=== PATIENT | female | born 1970 | race Caucasian/White ===

== ENCOUNTER 2020-01-23 11:28 | Emergency (ER) | payer BC, SELFPAY ==
[2020-01-23 11:34] VITALS: BP 139/80; PULSE 78; RESP 16; TEMP 36.6; O2SAT 98
--- NOTE | 2020-01-23 12:18 | ED.SKABFB ---
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 Patient states she has about 1/2-week history of pink, papular, discrete/well localized skin eruption on the palms and extensor aspects of her hands primarily. She notes a preceding 4-day history of definite sore throat, associated with fever to 101 which has since improved. She had a recent PCR Covid test that was negative ,; no CP, loss of taste/smell, travel, new partner. No fever, sore throat, eye/mucous membrane involvement, noncompliance with monthly methotrexate [recent increased to ~15 mg]; skin history is remarkable that she has a follow-up with dermatology for basal cell tomorrow and occasional acneiform eruptions on her nasal bridge. Discussed possible causes [infectious: Viral(HFM), bacterial, acquired/drug-related, etc.] and will treat broadly;Patient advised to keep photo log of area and see dermatology tomorrow; strep culture will be sent today. Related Data Home Medications Medication Instructions Recorded Confirmed cranberry 400 mg PO DAILY 03/17/19 10/30/19 folic acid 1 mg PO DAILY 03/17/19 10/30/19 cholecalciferol (vitamin D3) 25 mcg PO DAILY 03/20/19 10/30/19 [Vitamin D3] methotrexate sodium 2.5 mg tablet 17.5 mg PO WEEKLY tablet 10/30/19 10/30/19 multivitamin 1 tablet PO DAILY 10/30/19 10/30/19 Allergies Allergy/AdvReac Type Severity Reaction Status Date / Time Iodine and Iodide Containing Allergy Severe Swelling/RA Verified 10/30/19 10:37 Produc SH shellfish derived Allergy Severe RASH/SWELLI Verified 10/30/19 10:37 NG Review of Systems Review of Systems: Narrative: General/Constitutional: No weight loss, REPORTS prior fever Eyes: N0: Redness,discharge Ears/Nose/Throat: No: Epistaxis,ear discharge Respiratory: Denies: Hemoptysis Gastrointestinal: No Vomiting, Bleeding-rectal Skin: No Lumps, REPORTS eruption Neurologic: No Focal Weakness,Sz Hematologic: Denies: Petechiae/Purpura Psychiatric: No: Suicida ideationl All Other Systems: Reviewed and Negative [facility] Past Medical History Medical History (Updated 01/23/20 @ 12:06 by Diony Beverly MD) Basal cell carcinoma (~2007) Carpal tunnel syndrome Chronic rheumatic arthritis Chronic right shoulder pain Osteopenia Tendonitis Surgical History Surgical History (Updated 10/30/19 @ 11:21 by Otilia Tracy MD) History of cystoscopy History of hysterectomy 03/2019 History of tubal ligation (~2011) Family History Family History Grandparent Family history of malignant neoplasm of ovary, Onset Age: 72 Father Heart disease Pacemaker Social History Social History Smoking status: Never smoker Second hand tobacco smoke exposure: No Alcohol intake: current Substance use: never Substance use type: does not use Gender identity (if verbalized by the patient): Female Comments At time of signature, agree with nursing past medical, surgical, social and family history. There is no relevant family history pertinent to the presenting complaint Exam Narrative: Exam Narrative: General Appearance: Well-nourished, Normocephalic, Conjunctiva clear Ear: External ear normal Nose: Normal nose, Nare clear Mouth/Throat: Normal appearing no enanthem seen Neck Exam: Supple Respiratory: Airway patent, No respiratory distress Musculoskeletal: Moves all extremities, Non tender Skin: Warm, Dry smaller discrete papular skin eruption of bilateral hands Neurological: A&O x3, Normal affect Course Vital Signs Vital signs: Vital Signs Temperature 97.8 F 01/23/20 11:34 Pulse Rate 78 01/23/20 11:34 Resp
== END 2020-01-23 12:12 | disposition home or self-care (01) ==
PROVIDERS: Emergency Provider Emergency Medicine; PCP Family Medicine
DX: L30.9 Dermatitis, unspecified (principal); Z87.09 Personal history of other diseases of the respiratory system; M06.9 Rheumatoid arthritis, unspecified; M85.80 Other specified disorders of bone density and structure, unspecified site; Z85.828 Personal history of other malignant neoplasm of skin
CPT/HCPCS: 87081; 87880; 99213; G0463

== ENCOUNTER 2020-07-01 09:38 | Outpatient (CLI) | payer BC, SELFPAY ==
--- NOTE | ~2020-07-01 | MM_ITS ---
EXAMINATION: MM screening [facility] BI w corbin HISTORY: Screening mammogram TECHNIQUE: Craniocaudal and mediolateral oblique 3-D tomosynthesis images were obtained and synthetic 2-D images were generated. CAD analysis was submitted and interpreted. COMPARISON: 04/06/2019, 09/12/2018, 08/18/2017 BREAST PARENCHYMAL COMPOSITION: There are scattered areas of fibroglandular density. FINDINGS: There is no evidence of suspicious mass, calcification, or architectural distortion to sugg est malignancy in either breast. There has been no suspicious interval change. IMPRESSION: 1. No mammographic evidence of malignancy. 2. Recommend routine screening mammography in one year. BI-RADS Category 1: Negative Reviewed, dictated and finalized at location A.
== END 2020-07-01 09:39 | disposition home or self-care (01) ==
LOC: ANHIMG 09:44
PROVIDERS: PCP Family Medicine; Visit Provider Obstetrics & Gynecology
DX: Z12.31 Encounter for screening mammogram for malignant neoplasm of breast (principal)
CPT/HCPCS: 77063; 77067

== ENCOUNTER → 2021-05-23 13:04 | Outpatient (CLI) | payer OTHER, SELFPAY ==
--- NOTE | ~2021-05-23 | XR_ITS ---
XR foot LT standing 2V 05/23/2021 13:33 Indication: Left foot pain. Rheumatoid arthritis. Procedure: 2 views of the left foot Comparison: No prior studies for comparison. Findings: There is osteoarthritis of the second MTP joint. No erosive changes. Lisfranc joint intact. No acute fracture or traumatic malalignment. There is a small degenerative calcaneal enthesophyte at the plantar surface. Impression: 1: No acute bone or joint abnormality. Reviewed, dictated and finalized at location A. ED HAM [employer]ACER Impression: 1: No acute bone or joint abnormality.
--- NOTE | ~2021-05-23 | XR_ITS ---
XR hand BI arthritis min 3V 05/23/2021 13:33 Indication: Rheumatoid arthritis. Procedure: 4 views of each hand Comparison: No prior studies for comparison. Findings: No significant joint space narrowing. No erosive changes. There is anatomic alignment. No f ocal soft tissue abnormality. No foreign bodies. Impression: 1: No significant bone or joint abnormality. Reviewed, dictated and finalized at location A. [employer] Impression: 1: No significant bone or joint abnormality.
--- NOTE | ~2021-05-23 | XR_ITS ---
XR foot RT standing 2V 05/23/2021 13:33 Indication: Right foot pain. Rheumatoid arthritis. Procedure: 2 views right foot Comparison: No prior studies for comparison. Findings: No fracture, subluxation or dislocation. No significant joint space narrowing. Lisfranc clive nt intact. No erosive changes. Impression: 1: No significant bone or joint abnormality. Reviewed, dictated and finalized at location A. [employer] Impression: 1: No significant bone or joint abnormality.
== END ==
PROVIDERS: PCP Physician Assistant; Visit Provider Internal Medicine
DX: M05.79 Rheumatoid arthritis with rheumatoid factor of multiple sites without organ or systems involvement (principal)
CPT/HCPCS: 73130; 73620

== ENCOUNTER 2021-05-31 11:17 | Emergency (ER) | payer OTHER, SELFPAY ==
[2021-05-31 11:28] VITALS: BP 109/63; PULSE 65; RESP 16; TEMP 36.3; O2SAT 100
--- NOTE | 2021-05-31 11:41 | ED.EYEPROB ---
HPI - Eye Problem General Chief complaint: Eye Problems Stated complaint: EYE REDNESS Time Seen by Provider: 05/31/21 11:40 Source: patient, RN notes reviewed and old records reviewed Mode of arrival: ambulatory Limitations: no limitations History of Present Illness HPI Narrative: [facility] of left eye crustiness. First noticed discharge this morning. Slight itch mild pressure. Swollen upper and lower left eyelids. Has had conjunctivitis previously. I kind of know what it feels like . Reports mild blurry vision in left eye this morning before her eye cleared. Denies continued vision changes or floaters in vision. Denies trauma to the eye. Denies getting anything in eye. Denies sinus congestion or drainage or sore throat. Denies fever muscle aches or chills. chief complaint: eye redness Eye Symptoms: redness, itching and discharge Related Data Home Medications Medication Instructions Recorded Confirmed cholecalciferol (vitamin D3) 25 mcg PO DAILY 03/20/19 10/29/20 [Vitamin D3] multivitamin 1 tablet PO DAILY 10/30/19 10/29/20 Allergies Allergy/AdvReac Type Severity Reaction Status Date / Time Iodine and Iodide Containing Allergy Severe Swelling/RA Verified 05/27/21 11:10 Produc SH shellfish derived Allergy Severe RASH/SWELLI Verified 05/27/21 11:10 NG Review of Systems Review of Systems: CONSTITUTIONAL: Denies malaise, chills, sweats, or fever. EYES: Denies floaters. Reports mild blurry vision this morning but cleared within 10 minutes. Reports redness, irritation, watery discharge. ENT: Denies rhinorrhea, congestion, sinus pain, otalgia and sore throat. CARDIOVASCULAR: Denies chest pain, palpitations, or edema. RESPIRATORY: Denies cough, shortness of breath.. Denies dyspnea. GASTROINTESTINAL: Denies abdominal pain, nausea, vomiting, diarrhea SKIN: Denies rash or itching. MUSCULOSKELETAL: Denies myalgia. NEUROLOGIC: Denies headache. [facility] Past Medical History Medical History Basal cell carcinoma (~2007) Carpal tunnel syndrome Chronic rheumatic arthritis Chronic right shoulder pain Osteopenia Rheumatoid arthritis, seropositive, multiple sites Tendonitis Surgical History Surgical History History of cystoscopy History of hysterectomy 03/2019 History of tubal ligation (~2011) Family History Family History Grandparent Family history of malignant neoplasm of ovary, Onset Age: 72 Father Heart disease Pacemaker Social History Social History Smoking status: Never smoker Second hand tobacco smoke exposure: No Alcohol intake: current Alcohol use details: consumes 1 glass of wine rarely Substance use: never Substance use type: does not use Gender identity (if verbalized by the patient): Female Comments At time of signature, agree with nursing past medical, surgical, social and family history. There is no relevant family history pertinent to the presenting complaint Exam Narrative: GENERAL: Well-appearing, well-nourished, female and in no acute distress. Pleasant, cooperative. Casually dressed. HEAD: Normocephalic EYES: PERRLA, EOMI, left conjunctivae mildly injected. Scant clear discharge noted upper and lower left eyelids mildly edematous. ENT: Nares clear. Mucous membranes moist. NECK: Supple. No lymphadenopathy or tenderness with palpation. CHEST: No respiratory distress, speaks in full sentences. Lung sounds clear anterior and posterior. HEART: Regular rate and rhythm. No murmur heard. SKIN: [place], warm, dry, no rash. NEURO: Alert and oriented x3. PSYCH: Euthymic mood and affect Course Course Emergency Course: Patient is aware of diagnosis, understands and agrees to treatment plan. Christoph villarreal
== END 2021-05-31 12:02 | disposition home or self-care (01) ==
PROVIDERS: Emergency Provider Nurse Practitioner Family; PCP Physician Assistant
DX: H10.9 Unspecified conjunctivitis (principal); Z85.828 Personal history of other malignant neoplasm of skin; M85.80 Other specified disorders of bone density and structure, unspecified site; M05.9 Rheumatoid arthritis with rheumatoid factor, unspecified
CPT/HCPCS: 99213; G0463

== ENCOUNTER → 2021-06-18 12:43 | Outpatient (CLI) | payer OTHER, SELFPAY ==
--- NOTE | ~2021-06-18 | US_ITS ---
US abdomen limited INDICATION: Elevated liver enzymes. History of rheumatoid arthritis. PROCEDURE: Realtime right upper abdominal ultrasound. COMPARISON: No prior studies for comparison. FINDINGS: The pancreas is normal without focal mass or pancreatic ductal dilation. Liver echotexture is normal without focal mass or intrahepatic biliary dilatation. There is normal directional flow i n the portal vein. The gallbladder is normal without stones, gallbladder wall thickening or pericholecystic fluid. Comm on bile duct measures 3 mm. No sonographic Rossi's sign. IMPRESSION: 1: Normal limited abdominal ultrasound. Reviewed, dictated and finalized at location B.
== END ==
PROVIDERS: PCP Family Medicine; Visit Provider Physician Assistant
DX: R79.89 Other specified abnormal findings of blood chemistry (principal)
CPT/HCPCS: 76705

== ENCOUNTER 2021-07-04 07:23 | Outpatient (CLI) | payer OTHER, SELFPAY ==
--- NOTE | ~2021-07-04 | MM_ITS ---
EXAMINATION: MM screening [facility] BI w corbin HISTORY: Screening mammogram TECHNIQUE: Craniocaudal and mediolateral oblique 3-D tomosynthesis images were obtained and synthetic 2-D images were generated. CAD analysis was submitted and interpreted. COMPARISON: 07/01/2020, 04/06/2019, 09/26/2018, 09/12/2018 BREAST PARENCHYMAL COMPOSITION: There are scattered areas of fibroglandular density. FINDINGS: There is no suspicious mass, calcification, or architectural distortion to suggest malignan cy in either breast. There has been no suspicious interval change. IMPRESSION: 1. No mammographic evidence of malignancy. 2. Recommend routine screening mammography in one year. BI-RADS Category 1: Negative Reviewed, dictated and finalized at location A.
== END 2021-07-04 07:24 | disposition home or self-care (01) ==
LOC: ANHIMG 07:25
PROVIDERS: PCP Family Medicine; Visit Provider Obstetrics & Gynecology
DX: Z12.31 Encounter for screening mammogram for malignant neoplasm of breast (principal)
CPT/HCPCS: 77063; 77067

== ENCOUNTER 2021-09-17 09:45 | Outpatient (CLI) | payer OTHER, SELFPAY ==
--- NOTE | ~2021-09-17 | DEXA_ITS ---
Bone Density Report Name: LUIS A ANTON Age: 51 Sex: Female Ethnicity: White Date of : 1970 Indication: screening for osteoporosis; height loss; asthma or emphysema; hysterectomy; Referring Provider: DAE SAM Study: Bone densitometry was performed. Exam Date: September 17, 2021 Accession number: [id number] Bone Density: Region BMD T-score Z-score Classification AP Spine(L1, L2, L3) 1.009 -0.1 0.8 Normal Femoral Neck (Left) 0.645 -1.8 -0.9 Osteopenia Total Hip (Left) 0.821 -1.0 -0.4 Normal Femoral Neck (Right) 0.667 -1.6 -0.7 Osteopenia Total Hip (Right) 0.849 -0.8 -0.2 Normal Total Hip Mean 0.835 -0.9 -0.3 Normal World Health Organization criteria for BMD impression classify patients as: Normal (T-score at or above -1.0), Osteopenia (T-score between -1.0 and -2.5), or Osteoporosis (T-score at or below -2.5). 10-year Fracture Risk: FRAX not reported because: Premenopausal woman Clinical Information Provided by Patient: Has used the following medications: Calcium Has the following medical conditions: Asthma or Emphysema, Hysterectomy Patient maximum height was 64 Drinks caffeinated beverages Onset of menses at age 9 Premenopausal Number of children 1 Impression: The patient's bone mass is within expected range for age, gender and ethnicity. Discussion: BONE DENSITY IS WITHIN EXPECTED LIMITS FOR AGE, SEX AND RACE. Bone density is within expected limits for age, sex and race at all sites measured. The patient should follow a healthful lifestyle (good nutrition with adequate calcium and vitamin D, and appropriate weight-bearing exercise). Follow-Up: Consider repeating this study in 2 to 3 years to reassess this patient's status, or sooner if there is some new clinical indication. Reported by: MALINI on 09/17/2021 10:19:00 AM. Reviewed, dictated and finalized at location ADoni LARA
== END 2021-09-17 09:46 | disposition home or self-care (01) ==
PROVIDERS: PCP Family Medicine; Visit Provider Physician Assistant
DX: Z78.0 Asymptomatic menopausal state (principal); M85.89 Other specified disorders of bone density and structure, multiple sites
CPT/HCPCS: 77080

== ENCOUNTER 2022-02-17 16:46 | Emergency (ER) | payer OTHER, SELFPAY ==
[2022-02-17 16:53] VITALS: BP 137/67; PULSE 73; RESP 16; TEMP 36.6; O2SAT 100
--- NOTE | 2022-02-17 16:53 | ED.FEMALEGU ---
HPI - Female Genitourinary General Chief complaint: Urogenital-Female Stated complaint: UTI SYMPTOMS Time Seen by Provider: 02/17/22 16:50 Source: patient and RN notes reviewed History of Present Illness HPI Narrative: Patient is a 51-year-old female who presents to urgent care with complaints of a possible UTI. Patient denies any fevers, nausea, vomiting. States that she has had some lower abdominal pressure and the urgency for urination. Patient states she has had UTIs in the past but denies kidney stones. Patient states her last bowel movement was yesterday but she does have issues with constipation. Patient has not done anything for her symptoms [id number] with the exception of cranberry juice. No other acute complaints. No acute distress noted. Patient aware of plan of care. Some parts of this dictation were generated by voice recognition software and may contain typographical and/or grammatical inaccuracies. Related Data Home Medications Medication Instructions Recorded Confirmed cholecalciferol (vitamin D3) 25 25 mcg PO DAILY 03/20/19 06/03/21 mcg (1,000 unit) capsule (Vitamin D3) multivitamin (One-A-Day Essential 1 tablet PO DAILY 10/30/19 06/03/21 tablet) Allergies Allergy/AdvReac Type Severity Reaction Status Date / Time Iodine and Iodide Containing Allergy Severe Swelling/RA Verified 10/03/21 11:40 Produc SH shellfish derived Allergy Severe RASH/SWELLI Verified 10/03/21 11:40 NG Review of Systems Review of Systems: CONSTITUTIONAL: Denies fever, chills, or sweats. EYES: Denies visual changes, redness, or discharge. ENT: Denies rhinorrhea, congestion, sore throat, or otalgia. CARDIOVASCULAR: Denies chest pain, palpitations, or edema. RESPIRATORY: Denies cough or dyspnea. GASTROINTESTINAL: Denies abdominal pain, nausea, vomiting, or diarrhea. GENITOURINARY: Reports of urinary urgency and suprapubic pressure SKIN: Denies rash or itching. MUSCULOSKELETAL: Denies back pain, joint pain, or myalgia. NEUROLOGIC: Denies headache, numbness, or weakness. All other systems reviewed are negative, except as documented in HPI. [facility] Past Medical History Medical History Basal cell carcinoma (~2007) Carpal tunnel syndrome Chronic right shoulder pain Osteopenia Rheumatoid arthritis, seropositive, multiple sites Tendonitis Surgical History Surgical History History of cystoscopy History of hysterectomy 03/2019 History of tubal ligation (~2011) Family History Family History Grandparent Family history of malignant neoplasm of ovary, Onset Age: 72 Father Heart disease Pacemaker Social History Social History Smoking status: Never smoker Second hand tobacco smoke exposure: No Alcohol intake: current Drinks per week: 3 Substance use: never Substance use type: does not use Gender identity (if verbalized by the patient): Female Comments At the time of my signature, I reviewed and agree with the nursing past medical, surgical, social, and family history. There is no relevant family history pertinent to the patient complaint. Exam Narrative: GENERAL: This is a well-nourished, well-developed patient, in no apparent distress. HEAD: normocephalic, atraumatic. EYES: PERRL. Sclera clear/white. Vision is grossly intact. EARS: External ears normal NOSE: External nose normal with no obvious nasal discharge, nares without redness, no rhinorrhea. THROAT: Mucous membranes moist NECK: Neck supple CARDIOVASCULAR: Regular rate and rhythm without murmurs, gallops, or rubs. RESPIRATORY: Clear to auscultation. Breath sounds equal bilaterally. No wheezes, rales, or rhonchi. GASTROINTESTINAL: Abdomen soft, non-tender, nondistended. Bowel sounds are active. SKIN: warm, intact w
== END 2022-02-17 17:21 | disposition home or self-care (01) ==
PROVIDERS: Emergency Provider Nurse Practitioner Family; PCP Family Medicine
DX: N30.90 Cystitis, unspecified without hematuria (principal); Z85.828 Personal history of other malignant neoplasm of skin
CPT/HCPCS: 81003; 87086; 99213; G0463

== ENCOUNTER 2022-07-22 15:58 | Outpatient (CLI) | payer OTHER, SELFPAY ==
--- NOTE | ~2022-07-22 | MM_ITS ---
EXAMINATION: MM screening [facility] BI w corbin HISTORY: Screening mammogram TECHNIQUE: Craniocaudal and mediolateral oblique 3-D tomosynthesis images were obtained and synthetic 2-D images were generated. CAD analysis was submitted and interpreted. COMPARISON: 07/04/2021, 07/01/2020, 04/06/2019, 09/12/2018 BREAST PARENCHYMAL COMPOSITION:There are scattered areas of fibroglandular density. FINDINGS: No suspicious mass, calcification, or architectural distortion are identified in either kevin ast to suggest malignancy. There has been no suspicious interval change. IMPRESSION: No mammographic evidence of malignancy. Recommend routine screening mammography in one year. BI-RADS Category 1: Negative Reviewed, dictated and finalized at location .
== END 2022-07-22 15:59 | disposition home or self-care (01) ==
PROVIDERS: PCP Family Medicine; Visit Provider Obstetrics & Gynecology
DX: Z12.31 Encounter for screening mammogram for malignant neoplasm of breast (principal)
CPT/HCPCS: 77063; 77067

== ENCOUNTER 2023-09-14 08:15 | Outpatient (CLI) | payer OTHER, SELFPAY ==
--- NOTE | ~2023-09-14 | MM_ITS ---
EXAMINATION: MM screening [facility] BI w corbin HISTORY: Screening TECHNIQUE: Craniocaudal and mediolateral oblique 3-D tomosynthesis images were obtained and synthetic 2-D images were generated. CAD analysis was submitted and interpreted. COMPARISON: Comparison to multiple prior studies sequentially, with oldest reviewed study dated 07/01. BREAST PARENCHYMAL COMPOSITION: There are scattered areas of fibroglandular density. FINDINGS: There is no evidence of suspicious mass, calcification, or architectural distortion to sugg est malignancy in either breast. There has been no suspicious interval change. IMPRESSION: 1. No mammographic evidence of malignancy. 2. Recommend routine screening mammography in one year. BI-RADS Category 1: Negative Reviewed, dictated and finalized at location B.
== END 2023-09-14 08:16 | disposition home or self-care (01) ==
PROVIDERS: PCP Family Medicine; Visit Provider Obstetrics & Gynecology
DX: Z12.31 Encounter for screening mammogram for malignant neoplasm of breast (principal)
CPT/HCPCS: 77063; 77067

== ENCOUNTER 2024-09-20 01:27 | Day surgery (SDC) | payer OTHER, SELFPAY ==
[2024-09-04 14:38] VITALS: BMI 23.3
--- OUTSIDE RECORDS SUMMARY | 2024-09-20 01:31 | XMS_ITS | Clinical Summary ---
Author Organization [facility] [employer] Address [address] [place] [place] [address] Care Team Providers Care Funeral Service Manager Name Role Phone Iwona Mclaughlin MD Primary Care Provider [phone] Source Comments [facility] [employer],non-owned Affiliates and Associated Physician Practices is amultiple site organization consisting of ambulatory clinics and hospital sitesin [place], [place], [place] and [place]. This disclosure is being madepursuant to the Care Everywhere program and may not contain all information available regarding this patient. Last updated 17.[facility] [employer] Allergies Active Allergy Reactions Criticality Noted Date Comments Shellfish Unknown 01/05/2022 Medications * Be aware that medications may not be up to date on this document. Alwaysverify current medications with the patient. cetirizine (ZyrTEC) 10 MG tablet Take 1 (one) tablet by mouth once daily Active Cranberry 200 MG Take 1 tablet by mouth once daily Active Multiple Vitamin (Multi-Vitamins ) TABS Take 1 (one) tablet by mouth once daily Active Cholecalciferol (D3-1000 PO) Active Probiotic Product (PROBIOTIC-10 PO) Active fluticasone propionate (Flonase) 50 MCG/ACT nasal spray 3 Active hydroxychloroqu ine (Plaquenil) 200 MG tabletIndicatio ns:Rheumatoid Arthritis Take 1 (one) tablet by mouth once daily Reasons: Rheumatoid Arthritis 90 tablet 3 4 11/22/19 25 Active methotrexate 2.5 MG tabletIndicatio ns:Rheumatoid Arthritis Take 4 (four) tablets by mouth every 7 days Reasons: Rheumatoid Arthritis 48 tablet 3 4 11/22/19 25 Active folic acid (Folvite) 1 MG tabletIndicatio ns:Rheumatoid arthritis involving multiple sites with positive rheumatoid factor (HCC) Take 1 (one) tablet by mouth once daily 90 tablet 3 4 11/22/19 25 Active nitrofurantoin monohyd macro crystals (Macrobid) 100 MG capsule TAKE 1 CAPSULE BY MOUTH TWICE DAILY FOR 5 DAYS 5 Active Active Problems No known active problems Encounters Date Type Department Care Team Description 07/28/2024 Orders Only [facility] - Rheumatology [address] [place] [phone] Inder Blanchard MD Rheumatoid arthritis involving multiple sites with positive rheumatoid factor (HCC); Therapeutic drug monitoring; Transaminitis; detention current use of immunosuppressive drug 07/17/2024 9:30 AM CDT Office Visit [facility] - Ophthalmology [address] [place] [phone] Leobardo Caal MD Long-term use of hydroxychloroquine (Primary Dx); Orbital mass 07/17/2024 9:10 AM CDT Clinical Support [facility] - Ophthalmology [address] [place] [phone] Leobardo Caal MD Long-term use of hydroxychloroquine (Primary Dx) 07/17/2024 9:05 AM CDT Clinical Support [facility] - Ophthalmology [address] [place] [phone] Leobardo Caal MD Long-term use of hydroxychloroquine (Primary Dx) 07/17/2024 Travel from Last 3 Months Immunizations Immunization Administration Dates Next Due INFLUENZA VACCINE, TRIV. (AF LURIA, FLUZONE TRIVALENT; 6MO+) (IIV3) 12/11/2014,01/08/2011,12/20/2008,2002 INFLUENZA VACCINE, QUADR. (A FLURIA, FLUZONE QUADRIVALENT; 6MO+) (IIV4) 02/15/2012,01/03/2010 INFLUENZA VACCINE, QUADR. (F LUZONE; FLULAVAL; FLUARIX; AFLURIA QUADRIVALENT; 6MO+), 0.5 ML (IIV4) 12/26/2019,01/03/2019,01/26/2018,2016,01/16/2016 TDAP (7yrs+) 10/30/2019 iNFLUENZA VACCINE, RECOM-REYES, QUADR. (FLUBLOCK QUADRIVALENT; 18Y+) (RIV4) 01/05/2022 Family History Medical History Relation Name Comments Cataract Mother Blindness Neg Hx Glaucoma Neg Hx Macular Degeneration Neg Hx Relation Name Status Comments Mother Social History Tobacco Use Types Packs/Day Years Used Date Smoking Tobacco: Never Smokeless Tobacco: Never Tobacco Cessation:Counseling Given: Not Answered Alcohol Use Standard Drinks/Week Comments Yes 0 (1 standard drink = 0.6 oz pur e alcohol) social PHQ-2 Answer Date Recorded Patient Health Questionnaire-2 Score 0 06/05/2024 Comments No Sex and Gender Information Value Date Recorded Sex Assigned at Not on file Legal Sex Female 6:46 PM [employer] Gender Identity Not on file Sexual Orientation Not on file Last Filed Vital Signs Vital Sign Reading Time Taken Comments Blood Pressure 107/71 06/05/2024 8:36 AM [employer] Pulse 74 06/05/2024 8:36 AM [employer]CR[employer]E [employer] Temperature 36.7 C (98 F) 06/05/2024 8:36 AM [employer]CR[employer]E [employer] Respiratory Rate - - Oxygen Saturation 97% 06/05/2024 8:36 AM [employer]CR[employer]E [employer] Inhaled Oxygen Concentration - - Weight 61.7 kg (136 lb) 06/05/2024 8:36 AM CONCRETE [employer] B[employer] Height 162.6 cm (5' 4) 06/05/2024 8:36 AM [employer]CR[employer]E [employer] Body Mass Index 23.34 06/05/2024 8:36 AM [employer]CRETE [employer] Plan of Treatment Upcoming Encounters Date Type Department Care Team (Late st Contact Info) Description 01/16/2025 10:45 AM CDT Office Visit [facility] - Ophthalmology [address] [place] [phone] Leobardo Caal MD [address] [facility] [place] [address] Health Maintenance Due Date Last Done Comments COLOGUARD (AGES 45-75) - COLON CA SCREENING 1968 COLON MONITORING 1968 COLONOSCOPY - COLON CA SCREENING 1968 CT COLONOGRAPHY - COLON CA SCREENING 1968 Colorectal Cancer Screening 1968 FIT - COLON CA SCREENING 1968 FLEX SIG - COLON CA SCREENING 1968 LIPID TESTING 1968 MAMMOGRAM 1968 HIV SCREENING 09/11/1983 HEPATITIS B VACCINE (1 of 3 - 19+ 3-dose series) 09/11/1987 PAP SMEAR 1989 PNEUMOCOCCAL VACCINE 50+ (1 of 1 - PCV) 2018 ZOSTER VACCINE (1 of 2) 2018 COVID-19 VACCINE (3 - season) 2023 05/25/2020, 04/28/2020 INFLUENZA VACCINE (Season Ended) 2024 01/05/2022, 04/07/2021, 12/26/2019, Additional history exists DTAP/TDAP/TD VACCINES (2 - Td or Tdap) 10/29/2029 10/30/2019 HEPATITIS C SCREENING Completed 01/16/2022 DEPRESSION SCREENING Completed 06/05/2024, 11/22/2023, 06/11/2022 HIB VACCINE Aged Out No longer eligi ble based on patient's age to complete this topic HPV VACCINE Aged Out No longer eligi ble based on patient's age to complete this topic MENINGOCOCCAL (Group B) VACCINE SHARED DECISION-MAKING Aged Out No longer eligible based on patient's age to complete this topic MENINGOCOCCAL GROUPS A/C/Y/W VACCINE Aged Out No longer eligible based on patient's age to complete this topic Procedures Procedure Name Priority Date/Time Associated Diagnosis Comments RETINAL ANALYSIS OCT Routine 07/17/2024 9:01 AM CDT Long-term use of hydroxychloroquine CISNEROS AUTO VISUAL FIELD EXTENDED Routine 07/17/2024 9:01 AM CDT Long-term use of hydroxychloroquine HEPATITIS C AB W/RFLX TO HCV RNA QN PCR 01/16/2022 1:01 PM CDT from Last 3 Months or Most Recently Relevant to Health Maintenance Results * RETINAL ANALYSIS OCT (07/17/2024 9:01 AM CDT) Anatomical Region Laterality Modality Head External-Camera Photography Narrative 07/17/2024 11:22 AM CDT Images from the original result were not included. OD: OS: Leobardo Caal MD OPHTHALMOLOGY SCHED ORD W PAC S Final Result * CISNEROS AUTO VISUAL FIELD EXTENDED (07/17/2024 9:01 AM CDT) Anatomical Region Laterality Modality Head External-Camera Photography Narrative 07/17/2024 11:22 AM CDT Images from the original result were not included. Leobardo Caal MD OPHTHALMOLOGY SCHED ORD W PAC S Final Result * HEPATITIS C AB W/RFLX TO HCV RNA QN PCR (01/16/2022 1:01 PM CDT) Hepatitis C Antibody NON-REACTI VE NON-REACT [facility] Signal to Cut-Off 0.02 <1.00 [facility] Comment: HCV antibody was non-reactive. There is no laboratory evidence of HCV infection. In most cases, no further action is required. However, if recent HCV exposure is suspected, a test for HCV RNA (test code 05345) is suggested. For additional information please refer to http://education.[employer]/faq/SSA92d5 (This link is being provided for informational/ educational purposes only.) REPORT COMMENT: COULDNT CLARIFY TB TEST, PT WANT TO DECLINE IT ALL TOGETHER FASTING:NO PATIENT REFUSED SOME TESTING; PATIENT ENCOURAGED Test Performed at: [facility] [address] [place] [address] AHMET CASAS DO,MPH 01/16/2022 1:01 PM CDT 01/16/2022 1:08 PM CDT Inder Blanchard MD LAB - CHEMISTRY ORDERABLES Final Result [facility] [id number] [place] [address] from Last 3 Months or Most Recently Relevant to Health Maintenance Insurance [id number] [place] [address] HEALTH CARE HEALTH CARE Care Teams Funeral Service Manager Relationship Specialty Start Date End Date Iwona Mclaughlin MD [address] [place] [address] PCP - General 09/27/21
--- OUTSIDE RECORDS SUMMARY | 2024-09-20 01:31 | XMS_ITS | Clinical Summary ---
Author Organization [facility] Address [address] [place] [address] Care Team Providers Care Solar Designer/Installer Name Role Phone Som Wilkins MD Unavailable [phone] Iwona Mclaughlin MD Primary Care Provider Braulio Nova MD Unavailable Luis Manuel Deleon MD Unavailable [phone] Allergies Active Allergy Reactions Criticality Noted Date Comments Shellfish Derived Edema Medium 01/05/2022 Medications naproxen (ALEVE) 220 mg tablet Take according to fgfq-swt-tkujzz r package directions 0 0 8 Active Additional Information Patient taking differently:220 mgoral Every 12 hours PRN, pain, Indications: Anti-inflammatory, Informant: Self, Reported on 03/08/2023 folic acid (FOLVITE) 1 mg tablet Take two by mouth one time per day 60 9 Active Additional Information Patient taking differently:1 mgoral Every morning, Indications: Folate Deficiency, Informant: Self, Reported on 03/08/2023 cranberry extract 200 mg capsuleIndicat ions:supplemen t Take 1 capsule by mouth every morning Active multivitamin tabletIndicati ons:Vitamin Deficiency Prevention Take 1 tablet by mouth every morning Active cetirizine (ZyrTEC) 10 mg tabletIndicati ons:Seasonal Allergic Rhinitis Take 1 tablet (10 mg total) by mouth every morning Active methotrexate 2.5 mg tabletIndicati ons:Rheumatoid Arthritis Take 8 tablets (20 mg total) by mouth every 7 days 96 tablet 1 1 Active Additional Information Patient taking differently:20 mg oral Every 7 days,Take 5 tablets once per week on Sundays, Indications: Rheumatoid Arthritis, Reported on 03/08/2023 L.acid/L.casei /B.bif/B.gasper/F OS (PROBIOTIC BLEND ORAL)Indicatio ns:bowel health Take 1 capsule by mouth every morning Active calcium carbonate-mana min D3 1,250 mg (500 mg elemental)-600 unit tabletIndicati ons:Hypocalcem ia Prevention,Pre vention of Vitamin D Deficiency Take 1 tablet by mouth every morning Active fluticasone propionate (FLONASE) 50 mcg/actuation nasal sprayIndicatio ns:Allergic Rhinitis Administer 1 spray into each nostril 2 (two) times a day as needed for allergies 3 Active hydroxychloroq uine (PLAQUENIL) 200 mg tabletIndicati ons:Rheumatoid Arthritis Take 1 tablet (200 mg total) by mouth every morning 3 Active cholecalcifero l, vitamin D3, (VITAMIN D3 ORAL)Indicatio ns:supplement Take 1 capsule by mouth every morning Active albuterol HFA (PROVENTIL HFA,VENTOLIN HFA,PROAIR HFA) 90 mcg/actuation inhalerIndicat ions:Bronchiti s Inhale 2 puffs every 6 (six) hours as needed for wheezing or shortness of breath 1 each 4 025 Discontinu ed(No longer taking - Do not display on AVS) benzonatate (TESSALON) 200 mg capsuleIndicat ions:Bronchiti s Take 1 capsule (200 mg total) by mouth 3 (three) times a day as needed for cough 30 capsule 4 025 Discontinu ed(No longer taking - Do not display on AVS) Active Problems Problem Noted Date Diagnosed Date 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 Orbital lesion 02/02/2023 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 Rheumatoid arthritis, seropositive, multiple sit es 03/12/2015 Overview (07/09/2016): Seropositive rheumatoid arthritis Resolved Problems Problem Noted Date Diagnosed Date Resolved Date Abdominal pain, acute, right upper quadrant 10/12/2016 08/31/2018 Assessment & Plan (10/12/2016 9:17 AM CDT): This may be her gall bladder She is encouraged to monitor it Encounters Date Type Department Care Team Description 09/07/2024 10:00 AM CDT Office Visit [facility] Ophthalmology [address] [place] [address] Health 6th [place] [address] Bryan Mederos MD Orbital mass (Primary Dx) 09/07/2024 7:37 AM CDT - 09/07/2024 11:59 PM CDT Hospital Encounter [facility] [address] [place] [address] Bryan Mederos MD Orbital mass Discharge Disposition: Discharge to home or self care 08/07/2024 9:15 AM CDT Procedure visit [facility] Dermatology [address] [place] [address] Health [address] [place] [address] Christopher Brizuela MD Basal cell carcinoma (BCC) of left forehead (Primary Dx) 07/21/2024 Results Follow-Up [facility] Dermatology [address] [place] [address] Health [address] [place] [phone] Gabby Ackerman MD Surgical pathology 07/18/2024 9:30 AM CDT Office Visit [facility] Dermatology [address] [place] [address] Outpatient Health [address] [place] [address] Gabby Ackerman MD History of nonmelanoma skin cancer (Primary Dx); Actinic keratosis; Seborrheic keratosis; Lentigines; Multiple benign nevi; Malignant spindle cell neoplasm (HCC); Multiple excoriations; Neoplasm of unspecified behavior of bone, soft tissue, and skin 07/18/2024 Orders Only [facility] [address] [place] [address] Gabby Ackerman MD Neoplasm of unspecified behavior of bone, soft tissue, and skin from Last 3 Months Immunizations Immunization Administration Dates Next Due Influenza, Quadrivalent, Spl it, Preservative Free, Intramuscular 12/26/2019,01/03/2019,01/26/2018,01/12,01/16/2016 Influenza, Split 02/15/2012,01/03/2010 Influenza, Trivalent, IM (MDV) 5,01/08/2011,12/20/2008,02/15 Tdap 10/30/2019 Surgical History Surgery Date Site/Laterality Comments TOTAL ABDOMINAL HYSTERECTOMY 04/05/2018 - 04/04/2019 [facility] 04/05/2019 - 04/04/2020 [facility] 04/05/2017 - 04/04/2018 HEAD & NECK SKIN LESION EXCISIONAL BIOPSY 04/05/2022 - 04/04/2023 Spindle cell carcinoma DILATION AND CURETTAGE OF UTERUS 04/05/2000 - 04/04/2001 INCONTINENCE SURGERY 04/05/2008 - 04/04/2009 TUBAL LIGATION 04/05/2008 - 04/04/2009 DILATION AND CURETTAGE OF UTERUS 10/03/2002 - 11/02/2002 Medical History Medical History Date Comments Skin cancer PONV (postoperative nausea a nd vomiting) pt unaware, per patients hus band has some vomiting after hysterectomy Family History Medical History Relation Name Comments Multiple sclerosis Brother Cancer Maternal Grandmother Lila Burrows Other Other No family histo ry of Rheumatoid arthritis; Anesthesia problems Neg Hx Relation Name Status Comments Brother Maternal Grandmother Lila Burrows Other Social History Tobacco Use Types Packs/Day Years Used Date Smoking Tobacco: Never Smokeless Tobacco: Never Tobacco Cessation:Counseling Given: Not Answered Alcohol Use Standard Drinks/Week Comments No 0 (1 standard drink = 0.6 oz pur e alcohol) AUDIT-C Answer Date Recorded Q1: How often do you have a drink containing alc ohol? 2-3 times a week 03/08/2023 Q2: How many drinks containi ng alcohol do you have on a typical day when you are drinking? 1 or 2 03/08/2023 Q3: How often do you have si x or more drinks on one occasion? Never 03/08/2023 PHQ-2 Answer Date Recorded PHQ-2 Score 0 11/23/2018 Comments Unknown Sex and Gender Information Value Date Recorded Sex Assigned at Not on file Legal Sex Female 8:21 AM BODY WIRER Gender Identity Female 09/04/2019 7:53 PM CDT Sexual Orientation Straight 09/04/2019 7: 53 PM CDT Obstetrics History Last Filed Vital Signs Vital Sign Reading Time Taken Comments Blood Pressure 113/71 08/07/2024 9:26 AM CDT Pulse 82 08/07/2024 9:26 AM CDT Temperature 36.8 C (98.2 F) 12/09/2023 7:21 PM CDT Respiratory Rate 20 12/09/2023 7:21 PM CDT Oxygen Saturation 98% 08/07/2024 9:26 AM CDT Inhaled Oxygen Concentration - - Weight 61.7 kg (136 lb) 09/07/2024 7:56 AM CDT Height 162.6 cm (5' 4) 09/07/2024 7:56 AM CDT Body Mass Index 23.34 09/07/2024 7:56 AM CDT Plan of Treatment Scheduled Procedures Name Priority Associated Diagnoses Date/Ti me ORBITOTOMY Orbital mass Health Maintenance Due Date Last Done Comments Breast Cancer Screening-Mammogram 1970 Colon Cancer Screening-Colonoscopy 1970 Hepatitis B Screening 1986 Regular Well Visit/Exam 18-64 1986 Pneumococcal vaccine <65 (1 of 2 - PCV) 09/11/1987 Zoster Vaccine (1 of 2) 09/11/1987 Depression Screening 05/03/2019 05/03/2018, 04/14/19 18 Influenza Vaccine (Season Ended) 2024 01/11/2023, 01/05/2022, 12/26/2019, Additional history exists DTaP/Tdap/Td Vaccine (2 - Td or Tdap) 10/29/2029 10/30/2019 Hepatitis C Screening Completed 04/04/2014 Procedures Procedure Name Priority Date/Time Associated Diagnosis Comments MRI ORBIT W WO CONTRAST Schedule Routine, Read Routine (OP Routine) 09/07/2024 8:57 AM CDT Orbital mass SURGICAL PATHOLOGY Routine 07/18/2024 12:00 AM CDT Neoplasm of unspecified behavior of bone, soft tissue, and skin SERUM HEPATITIS PANEL Routine 04/04/2014 9:21 AM BODY WIRER from Last 3 Months or Most Recently Relevant to Health Maintenance Results * MRI Orbit W WO Contrast (09/07/2024 8:57 AM CDT) Anatomical Region Laterality Modality Head and Neck N/A Magnetic Resonan ce 09/07/2024 1:57 PM CDT Impressions 09/07/2024 1:57 PM CDT Stable left intraorbital mass. The primary differential is a benign lesion such as cavernous hemangioma or varix. Electronically signed by: Cade Bagley MD, PHD Narrative 09/07/2024 1:57 PM CDT EXAMINATION: Magnetic resonance imaging (MRI) of the orbits without and with contrast HISTORY: Orbital mass TECHNIQUE: Multiplanar multi-weighted MRI of the orbits was performed without and with intravenous contrast using the standard protocol. This included multiplanar high resolution imaging of the orbits and optic nerves. Contrast information: 12 mL Gadoterate Meglumine IV COMPARISON: 09/02/2023 FINDINGS: There is left intraorbital enhancing lesion between the lateral and inferior rectus, mainly in the extraconal space and measuring 9.6 x 10.6 mm on coronal view, previously 9.6 x 10.2 mm. Both globes are normal in shape and outline without proptosis. The extraocular muscles are normal in size. No intra- or extraconal masses are present. The intraconal fat is normal. The orbital colby are intact. The lacrimal glands are normal in appearance. Meckel's cave appears normal on each side. The carotid artery flow voids are normal. The optic nerves and optic chiasm are normal. The suprasellar cistern is normal. The paranasal sinuses are normal. Included portions of the brain are normal. Procedure Note Cade Bagley MD PhD - 09/07/2024 EXAMINATION: Magnetic resonance imaging (MRI) of the orbits without and with contrast HISTORY: Orbital mass TECHNIQUE: Multiplanar multi-weighted MRI of the orbits was performed without and with intravenous contrast using the standard protocol. This included multiplanar high resolution imaging of the orbits and optic nerves. Contrast information: 12 mL Gadoterate Meglumine IV COMPARISON: 09/02/2023 FINDINGS: There is left intraorbital enhancing lesion between the lateral and inferior rectus, mainly in the extraconal space and measuring 9.6 x 10.6 mm on coronal view, previously 9.6 x 10.2 mm. Both globes are normal in shape and outline without proptosis. The extraocular muscles are normal in size. No intra- or extraconal masses are present. The intraconal fat is normal. The orbital colby are intact. The lacrimal glands are normal in appearance. Meckel's cave appears normal on each side. The carotid artery flow voids are normal. The optic nerves and optic chiasm are normal. The suprasellar cistern is normal. The paranasal sinuses are normal. Included portions of the brain are normal. IMPRESSION: Stable left intraorbital mass. The primary differential is a benign lesion such as cavernous hemangioma or varix. Electronically signed by: Cade Bagley MD, PHD Bryan Mederos MD IM MRI PROCEDURES Final Result * Surgical pathology (07/18/2024 12:00 AM CDT) Tissue (Skin, shave biopsy) 07/18/2024 07/18/2024 12:28 PM CDT [facility] - 07/21/2024 1:41 PM CDT EPIC results best viewed via link to PDF [facility] [address] [place] [address], [address], [place] [address] [email or web address] Note to Patients: This report may contain a detailed description of human tissue sent by a health care provider to the laboratory for pathologic evaluation. The content of this report is essential for diagnosis and may provide important critical findings. This information may be unfamiliar to patients to review without a medical professional present. It is advised that the patient review this report in the presence of a health care provider who can answer questions and explain the details. FINAL REPORT Patient Information: PATIENT NAME: LAURA POLO SEX: F : 1970 (Age: 53) Specimen Information: COLLECTED: 07/18/2024 RECEIVED: 07/18/2024 REPORTED: 07/21/2024 Submitting Physician Information: Gabby Ackerman M.D. [address] [place] [address], [address] [place] [address], DERMATOPATHOLOGY REPORT RESULTS DIAGNOSIS: SKIN, LEFT FOREHEAD, SHAVE BIOPSY: BASAL CELL CARCINOMA, SUPERFICIAL exr/lac By this signature, I attest that the above diagnosis is based upon my personal examination of the slides(and/or other material indicated in the diagnosis). Aisha Magaña M.D. Report Electronically Reviewed and Signed Out By Aisha Magaña M.D. 07/21/2024 13:41:18 CLINICAL INFORMATION PATIENT WITH HISTORY OF SPINDLE CELL NEOPLASM S/P EXCISION BY DR. NOVA IN 2022, NOW WITH NEW RAISED RED PAPULE ADJACENT TO SURGICAL SCAR SPECIMEN DATA MICROSCOPIC DESCRIPTION: Emanating from the undersurface of the epidermis, there are aggregates of atypical basal epithelial cells with palisading of their peripheral nuclei. (C44.91) GROSS DESCRIPTION: Received in a formalin-containing bottle is a cylindrical piece of pale-flores, finely scaling, glistening skin and adipose tissue measuring 0.6 by 0.3 by 0.1 cm. The surgical margin is inked blue. The specimen is submitted entirely in a single cassette. Due to shrinkage, measurements may be different than those at time of procedure. [facility]/tyc ICD-9 A; ZSD.176 Clerical Data A; 03216 The characteristics of special, immunohistochemical, and immunofluorescence stains and in-situ hybridization tests performed by the [facility] were deemed acceptable in ongoing director of quality measures and in compliance with regulations drawn from the Clinical Laboratory Improvement Act [id number] (CLIA '88). Control reactions for all stains performed were deemed adequate and appropriate by a pathologist prior to evaluation of patient tissue. Some diagnoses were rendered with the assistance of laboratory-developed tests utilizing analyte-specific reagents; the performance characteristic of these tests were determined by [facility] and are not cleared or approved by the [place] Food an Drug administration. Laboratory developed test may only be performed in a facility that is certified by the [facility] as a high-complexity laboratory under CLIA '88. These tests are used for clinical purposes and are not investigational. us Gabby Ackerman MD LAB PATHOLOGY ORDERABLES Final Result DERMATOPATHOLOGY CENTER [facility] [place] [address] * Serum Hepatitis panel (04/04/2014 9:21 AM BODY WIRER) HBV surface ag Negative NEG HISTO RICAL RESULTS HCV ab Negative NEG HISTORICAL RESULTS Comment: Interpretive Data If confirmation is required, call Laboratory Customer Service to request sample to be sent to [facility] for Hepatitis C Virus (HCV) RNA Detection and Quantitation by Real-Time Reverse Lead Instructor/Flight Attendant-PCR (RT-PCR). Current interpretive data was last revised on 2011 HBV core ab, IgM Negative NEG HIS TORICAL RESULTS Comment: Interpretive Data If test is reported as Equivocal, new sample should be drawn for testing. Current interpretive data was last revised on 2007. HAV ab, IgM Negative NEG HISTORIC AL RESULTS Comment: Interpretive Data If test is reported as Equivocal, new sample should be drawn in two weeks for testing. Current interpretive data was last revised on 2007. Serum 04/04/2014 9:21 AM BODY WIRER us Leydi Shepherd MD LAB BLOOD ORDERABLES Final R esult HISTORICAL RESULTS from Last 3 Months or Most Recently Relevant to Health Maintenance Insurance BL CHOICE PRF PPO [place] [id number] CHOICE PLUS UHC CHOICE PLUS Care Teams Solar Designer/Installer Relationship Specialty Start Date End Date Iwona Mclaughlin MD [address] [place] [address] PCP - General Family Medicine 02/02/23 Som Wilkins MD [address] [place] [address] Dermatology 01/18/23 Braulio Nova MD [address] [place] [address] Surgical Oncologist Otolaryngology 05/29/24 Luis Manuel Deleon MD [address] [address] Referring Physician Obstetrics and Gynecology 05/29/24
--- OUTSIDE RECORDS SUMMARY | 2024-09-20 01:31 | XMS_ITS | Referral Summary ---
Author Organization [facility] Address [address] [place] [address] Care Team Providers Care Auto Finance Sales Rep Name Role Phone Som Wilkins MD Unavailable [phone] Iwona Mclaughlin MD Primary Care Provider [phone] Braulio Nova MD Unavailable Luis Manuel Deleon MD Unavailable [phone] Encounters Date Type Department Care Team Description 09/07/2024 10:00 AM CDT Office Visit [facility] Ophthalmology [facility] Health 6th [place] [address] Bryan Mederos MD Orbital mass (Primary Dx) 09/07/2024 7:37 AM CDT - 09/07/2024 11:59 PM CDT Hospital Encounter [facility]) [address] [place] [address] Bryan Mederos MD Orbital mass Discharge Disposition: Discharge to home or self care 08/07/2024 9:15 AM CDT Procedure visit [facility] Dermatology [address] [place] [address] [address] [place] [address] Christopher Brizuela MD Basal cell carcinoma (BCC) of left forehead (Primary Dx) 07/21/2024 Results Follow-Up [facility] Dermatology [address] [facility] [address] [place] [address] Gabby Ackerman MD Surgical pathology 07/18/2024 Orders Only [facility] [address] [place] [address] Gabby Ackerman MD Neoplasm of unspecified behavior of bone, soft tissue, and skin 07/18/2024 9:30 AM CDT Office Visit [facility] Dermatology [facility] Outpatient Health [address] [place] [address] Gabby Ackerman MD History of nonmelanoma skin cancer (Primary Dx); Actinic keratosis; Seborrheic keratosis; Lentigines; Multiple benign nevi; Malignant spindle cell neoplasm (HCC); Multiple excoriations; Neoplasm of unspecified behavior of bone, soft tissue, and skin from Last 3 Months Allergies Active Allergy Reactions Criticality Noted Date Comments Shellfish Derived Edema Medium 01/05/2022 Medications naproxen (ALEVE) 220 mg tablet Take according to vdbn-fdm-nppuch r package directions 0 0 8 Active [...] bladder She is encouraged to monitor it Immunizations Immunization Administration Dates Next Due Influenza, Quadrivalent, Spl it, Preservative Free, Intramuscular 12/26/2019,01/03/2019,01/26/2018,01/12,01/16/2016 Influenza, Split 02/15/2012,01/03/2010 Influenza, Trivalent, IM (MDV) 5,01/08/2011,12/20/2008,02/15 Tdap 10/30/2019 Social History Tobacco Use Types Packs/Day Years [...] on file Legal Sex Female 8:21 AM AUTO SERVICER Gender Identity Female 09/04/2019 7:53 PM CDT Sexual Orientation Straight 09/04/2019 7: 53 PM CDT Last Filed Vital Signs Vital Sign Reading [...] Associated Diagnoses Date/Ti me ORBITOTOMY Orbital mass Procedures Procedure Name Priority Date/Time Associated Diagnosis Comments MRI ORBIT W WO CONTRAST Schedule Routine, Read Routine (OP Routine) 09/07/2024 8:57 AM CDT Orbital mass SURGICAL PATHOLOGY Routine 07/18/2024 12:00 AM CDT Neoplasm of unspecified behavior of bone, soft tissue, and skin SERUM HEPATITIS PANEL Routine 04/04/2014 9:21 AM AUTO SERVICER from Last 3 Months or Most Recently [...] Cade Bagley MD, PHD Bryan Mederos MD IMG MRI PROCEDURES Final Result * Surgical pathology (07/18/2024 12:00 AM CDT) Tissue (Skin, shave biopsy) 07/18/2024 07/18/2024 12:28 PM CDT [facility] - 07/21/2024 1:41 PM CDT EPIC results best viewed via link to PDF [facility] [address] [place] [address], [address], [place] [address] [email or web address] Note to Patients: This report [...] 07/21/2024 Submitting Physician Information: Gabby Ackerman M.D. [address] [place] [address], [place] [address], DERMATOPATHOLOGY REPORT RESULTS DIAGNOSIS: SKIN, LEFT FOREHEAD, [...] different than those at time of procedure. [facility]/tyc ICD-9 A; ZSD.176 Clerical Data A; 82022 The characteristics of special, immunohistochemical, and immunofluorescence stains and in-situ hybridization tests performed by the [facility] were deemed acceptable in ongoing housing quality standard inspector measures and in compliance with regulations drawn from the Clinical Laboratory Improvement Act oq5769 (CLIA '88). Control reactions for all stains performed were deemed adequate and appropriate by a pathologist prior to evaluation of patient tissue. Some diagnoses were rendered with the assistance of laboratory-developed tests utilizing analyte-specific reagents; the performance characteristic of these tests were determined by [facility] and are not cleared or approved by the [place] Food an Drug administration. Laboratory developed test may only be performed in a facility that is certified by the [facility] as a high-complexity laboratory under CLIA '88. These tests are used for clinical purposes and are not investigational. Gabby Ackerman MD LAB PATHOLOGY ORDERABLES Final Result DERMATOPATHOLOGY CENTER [address] [place] [address] * Serum Hepatitis panel (04/04/2014 9:21 AM AUTO SERVICER) HBV surface ag Negative NEG HISTO RICAL RESULTS HCV ab Negative NEG HISTORICAL RESULTS Comment: Interpretive Data If confirmation is required, call Laboratory Customer Service to request sample to be sent to [facility] for Hepatitis C Virus (HCV) RNA Detection and Quantitation by Real-Time Reverse Special Events Fundraiser-PCR (RT-PCR). Current interpretive data was last revised [...] revised on 2007. Serum 04/04/2014 9:21 AM AUTO SERVICER us Leydi Shepherd MD LAB BLOOD ORDERABLES Final R esult HISTORICAL RESULTS from Last 3 Months or Most Recently Relevant to Health Maintenance Insurance [place] PL[place] [facility] HMO/PPO Address: [facility] [address] [place] [address] [facility] CHOICE PLUS [facility] HMO/PPO Address: [facility] [address] [place] [address] Care Teams Auto Finance Sales Rep Relationship Specialty Start Date End Date Iwona Mclaughlin MD [address] [facility] [address] [place] [address] PCP - General Family Medicine 02/02/23 Som Wilkins MD [address] [facility] [place] [address] Dermatology 01/18/23 Braulio Nova MD [address] [facility] [address] [place] [address] Surgical Oncologist Otolaryngology 05/29/24 Luis Manuel Deleon MD [address] [address] Referring Physician Obstetrics and Gynecology 05/29/24
--- OUTSIDE RECORDS SUMMARY | 2024-09-20 01:31 | XMS_ITS | Encounter Summary ---
Author Organization [facility] Address [address] [place] [address] Phone Care Team Providers Care Dough Sheeter Name Role Phone Som Wilkins MD Unavailable [phone] Iwona Mclaughlin MD Primary Care Provider [phone] Braulio Ford MD Unavailable [phone] Luis Manuel Deleon MD Unavailable [phone] Encounter Details Date Type Department Care Team (Late st Contact Info) Description 07/21/2024 Results Follow-Up [facility] Dermatology [address] [facility] Outpatient Health [address] [place] [address] Gabby Ackerman MD [address] [facility] [address] [place], [place] [id number] Surgical pathology Social History Tobacco Use Types Packs/Day Years Used Date Smoking Tobacco: Never Smokeless Tobacco: Never Alcohol Use Standard Drinks/Week Comments No 0 [...] on file Legal Sex Female 8:21 AM COMMUNICATION SIGNALS INTELLIGENCE Gender Identity Female 09/04/2019 7:53 PM CDT Sexual Orientation Straight 09/04/2019 7: 53 PM CDT documented as of this encounter Plan of Treatment Scheduled Procedures Name Priority Associated Diagnoses Date/Ti me ORBITOTOMY Orbital mass documented as of this encounter Visit Diagnoses Not on filedocumented in this encounter Care Teams Dough Sheeter Relationship Specialty Start Date End Date Iwona Mclaughlin MD [address] [place] [address] PCP - General Family Medicine 02/02/23 Som Wilkins MD [address] [place] [address] Dermatology 01/18/23 Braulio Ford MD [address] [place] [address] Surgical Oncologist Otolaryngology 05/29/24 Luis Manuel Deleon MD [address] [facility] [address] [place], [place] [id number] Referring Physician Obstetrics and Gynecology 05/29/24 documented as of this encounter
--- OUTSIDE RECORDS SUMMARY | 2024-09-20 01:31 | XMS_ITS | Encounter Summary ---
Author Organization [facility] Health Address [address] [place] [address] Care Team Providers Care Rustic Fence Builder Name Role Phone Iwona Mclaughlin MD Primary Care Provider [phone] Encounter Details Date Type Department Care Team (Late st Contact Info) Description 12/15/2021 Telephone [facility] [address] [place] [address] Iwona Mclaughlin MD [address] [place] [address] Social History Tobacco Use Types Packs/Day Years Used Date Smoking Tobacco: Never Assessed Comments Unknown Sex and Gender Information Value Date Recorded Sex Assigned at Not on file 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 documented in this encounter Plan of Treatment Upcoming Encounters Date Type Department Care Team (Late st Contact Info) Description 01/16/2025 10:45 AM CDT Office Visit [facility] - Ophthalmology [address] [place] [address], [place] [address] Leobardo Caal MD [address] [place] [address] [place] [address] documented as of this encounter Visit Diagnoses Not on filedocumented in this encounter Care Teams Rustic Fence Builder Relationship Specialty Start Date End Date Iwona Mclaughlin MD [address] [place] [address] PCP - General 09/27/21 documented as of this encounter
--- OUTSIDE RECORDS SUMMARY | 2024-09-20 01:31 | XMS_ITS ---
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 Past Treatment and Therapy Plans No past plan information found. Lifetime Dose Tracking * Chemical Lifetime Dose Automatic Entry Manual Entr y DLP 2,341.2 mGycm 2,341.2 mGycm 0 mGycm Resolved Problems Problem Noted Date Diagnosed Date Resolved Date Abdominal pain, acute, right upper quadrant 10/12/2016 08/31/2018 Assessment & Plan (10/12/2016 9:17 AM CDT): This may be her gall bladder She is encouraged to monitor it
[2024-09-20 06:10] VITALS: BP 100/65; PULSE 73; RESP 16; TEMP 36.4; O2SAT 100; BMI 22.8
[2024-09-20] MEDS: LACTATED RINGERS 1,000 ML 150 ML IV CONT (06:35)
--- NOTE | 2024-09-20 07:25 | PM.HPGS ---
History of Present Illness History of Present Illness Consent: Risks, benefits, and alternatives have been discussed and questions answered. Patient agrees to proceed with procedure. Chief complaint: Encounter for screening for malignant neoplasm of Narrative: Laura Polo is a 54 year old female here for first screening colonoscopy Review of Systems Review of Systems: All systems reviewed & are unremarkable except as noted in HPI and below PMFSH Past Medical History Medical History (Updated 09/20/24 @ 07:26 by Riaz Cao MD) Colon cancer screening Rheumatoid arthritis, seropositive, multiple sites Osteopenia Basal cell carcinoma (~2007) Carpal tunnel syndrome Chronic right shoulder pain Tendonitis Surgical History Surgical History History of hysterectomy 03/2019 History of cystoscopy History of tubal ligation (~2011) Family History Family History Grandparent Family history of malignant neoplasm of ovary, Onset Age: 72 Father Heart disease Pacemaker Social History Social History Smoking status: Never smoker Second hand tobacco smoke exposure: No Alcohol intake: current Drinks per week: 1 Substance use: never Substance use type: does not use Lack of Transportation: No Lack of Food: Never True Current Housing: I Have Housing Concerned About Future Housing: No Difficulty Paying Gas/Electric Bills: No Difficulty Paying for Meds: No Currently Unemployed: No Education: Bachelor's Degree Difficulty w/ Childcare or Family Care: No Living arrangements: with family Gender identity (if verbalized by the patient): Female Spiritual care concerns: No Meds Home Medications and Allergies Home Medications ?Medication ?Instructions ?Recorded ?Confirmed ?Type cholecalciferol (vitamin D3) 25 25 mcg PO DAILY 03/20/19 09/20/24 History mcg (1,000 unit) capsule (Vitamin D3) multivitamin (One-A-Day Essential 1 tablet PO DAILY 10/30/19 09/20/24 History tablet) folic acid 1 mg tablet 1 mg PO DAILY #90 tabs 10/03/21 09/20/24 Rx methotrexate sodium 2.5 mg tablet 15 mg (6 x 2.5 mg) PO WEEKLY #77 10/03/21 09/20/24 Rx tabs hydroxychloroquine 200 mg tablet 200 mg PO DAILY 06/04/22 09/20/24 History (Plaquenil) Saccharomyces boulardii 250 mg 250 mg PO BID 11/25/22 09/20/24 History capsule (Daily Probiotic (S. boulardii)) cranberry fruit concentrate 250 mg 250 mg PO TID 11/25/22 09/20/24 History chewable tablet (Azo Cranberry) nitrofurantoin 100 mg capsule 100 mg PO Q12H 06/08/24 09/20/24 History Allergies Allergy/AdvReac Type Severity Reaction Status Date / Time Iodine and Iodide Containing Allergy Severe Swelling/RA Verified 09/20/24 06:20 Produc SH shellfish derived Allergy Severe RASH/SWELLI Verified 09/20/24 06:20 NG Vital Signs Vital Signs - 24 hr 09/20/24 06:10 Temperature 97.5 F L Pulse Rate 73 Respiratory Rate 16 Blood Pressure 100/65 Pulse Oximetry 100 Oxygen Delivery Room Air Exam Const: General: comfortable and no acute distress HENMT: Face/Nose/Sinus: Normal nares present Eyes: General: appearance normal, both eyes and all related structures Neck: Neck: no JVD Resp: Auscultation: clear to auscultation bilaterally Cardio: Rate: regular rate Rhythm: regular rhythm GI: Inspection: non-distended GI Palp: Yes Soft to palpation Skin: General skin exam: normal color Neuro: General: gait normal Speech: normal speech Extrem: General: normal to inspection Psych: Mental Status: mental status grossly normal Assessment and Plan Assessment and plan (1) Colon cancer screening: Code(s): Z12.11 - Encounter for screening for malignant neoplasm of colon Status: Acute Assessment and Plan: colonoscopy
--- NOTE | 2024-09-20 07:28 | WPDANESEPPF ---
Anes - Initial Pre Proc Eval Procedure: Operation Date: 09/20/24 07:30 Proposed Procedures p Screening Colonoscopy - Riaz Cao MD Date/Time: 09/20/24 07:28 Surgeon: Riaz Cao MD Pre Op Diagnosis: Encounter for screening for malignant neoplasm of Patient Data Age: 54 Gender: F Height: 1.63 m Weight: 60.3 kg Last Vital Signs Temp 97.5 F L 09/20/24 06:10 Pulse 73 09/20/24 06:10 Resp 16 09/20/24 06:10 BP 100/65 09/20/24 06:10 Pulse Ox 100 09/20/24 06:10 O2 Del Method Room Air 09/20/24 06:10 Allergies Allergy/AdvReac Type Severity Reaction Status Date / Time Iodine and Iodide Containing Allergy Severe Swelling/RA Verified 09/20/24 06:20 Produc SH shellfish derived Allergy Severe RASH/SWELLI Verified 09/20/24 06:20 NG Home Medications ?Medication ?Instructions ?Recorded ?Confirmed ?Type cholecalciferol (vitamin D3) 25 25 mcg PO DAILY 03/20/19 09/20/24 History mcg (1,000 unit) capsule (Vitamin D3) multivitamin (One-A-Day Essential 1 tablet PO DAILY 10/30/19 09/20/24 History tablet) folic acid 1 mg tablet 1 mg PO DAILY #90 tabs 10/03/21 09/20/24 Rx methotrexate sodium 2.5 mg tablet 15 mg (6 x 2.5 mg) PO WEEKLY #77 10/03/21 09/20/24 Rx tabs hydroxychloroquine 200 mg tablet 200 mg PO DAILY 06/04/22 09/20/24 History (Plaquenil) Saccharomyces boulardii 250 mg 250 mg PO BID 11/25/22 09/20/24 History capsule (Daily Probiotic (S. boulardii)) cranberry fruit concentrate 250 mg 250 mg PO TID 11/25/22 09/20/24 History chewable tablet (Azo Cranberry) nitrofurantoin 100 mg capsule 100 mg PO Q12H 06/08/24 09/20/24 History Patient hx anesthesia problems: none Family hx anesthesia problems: none Results Review: All pre-operative results and documents have been reviewed as part of the pre-operative evaluation. [facility] Past Medical History Medical History (Updated 09/20/24 @ 07:26 by Riaz Cao MD) Colon cancer screening Rheumatoid arthritis, seropositive, multiple sites Osteopenia Basal cell carcinoma (~2007) Carpal tunnel syndrome Chronic right shoulder pain Tendonitis Surgical History Surgical History History of hysterectomy 03/2019 History of cystoscopy History of tubal ligation (~2011) Family History Family History Grandparent Family history of malignant neoplasm of ovary, Onset Age: 72 Father Heart disease Pacemaker Social History Social History Smoking status: Never smoker Second hand tobacco smoke exposure: No Alcohol intake: current Drinks per week: 1 Substance use: never Substance use type: does not use Lack of Transportation: No Lack of Food: Never True Current Housing: I Have Housing Concerned About Future Housing: No Difficulty Paying Gas/Electric Bills: No Difficulty Paying for Meds: No Currently Unemployed: No Education: Bachelor's Degree Difficulty w/ Childcare or Family Care: No Living arrangements: with family Gender identity (if verbalized by the patient): Female Spiritual care concerns: No Anes - Eval Final PreProcedure Day of Procedure 09/20/24 07:28 Patient weight: normal Heart: regular rate and rhythm Lungs: clear to auscultation Airway: Mallampati scale class II Neurological: alert and oriented Last oral intake: >/= 8 hours ASA classification: II Emergent: no Anesthetic plan: proceed Anesthesia type and monitoring: general GIVS and standard monitoring Results Review: All pre-operative results and documents have been reviewed as part of the pre-operative evaluation. Informed Consent: The patient's anesthetic plan and its attendant risks and benefits were discussed with the patient/family/POA. Questions were solicited and answers provided to the satisfaction of the patient/family/POA.
[2024-09-20 07:50] VITALS: BP 86/50; PULSE 70; RESP 15; O2SAT 100
[2024-09-20 08:00] VITALS: BP 92/55; PULSE 70; RESP 18; O2SAT 100
[2024-09-20 08:10] VITALS: BP 111/62; PULSE 61; RESP 15; O2SAT 100
== END 2024-09-20 08:25 | disposition home or self-care (01) ==
PROVIDERS: PCP Family Medicine; Referring Provider Family Medicine; Visit Provider Internal Medicine Gastroenterology
PROC: 0DJD8ZZ Inspection of Lower Intestinal Tract, Via Natural or Artificial Opening Endoscopic (ICD-10-PCS; CPT 45378; principal; 2024-09-20 07:30)
DX: Z12.11 Encounter for screening for malignant neoplasm of colon (principal); M05.89 Other rheumatoid arthritis with rheumatoid factor of multiple sites; G89.29 Other chronic pain; M25.511 Pain in right shoulder; G56.00 Carpal tunnel syndrome, unspecified upper limb; Z98.890 Other specified postprocedural states; Z98.51 Tubal ligation status; Z85.828 Personal history of other malignant neoplasm of skin; Z80.41 Family history of malignant neoplasm of ovary; Z82.49 Family history of ischemic heart disease and other diseases of the circulatory system
CPT/HCPCS: 45378; J2003; J2704; J7120

== ENCOUNTER 2024-10-04 09:57 | Outpatient (CLI) | payer OTHER, SELFPAY ==
--- NOTE | ~2024-10-04 | MM_ITS ---
EXAMINATION: MM screening [facility] BI w corbin HISTORY: Screening mammogram TECHNIQUE: Craniocaudal and mediolateral oblique 3-D tomosynthesis images were obtained and synthetic 2-D images were generated. CAD analysis was submitted and interpreted. COMPARISON: 09/14/2023, 07/22/2022, 07/04/2021, 07/01/2020 BREAST PARENCHYMAL COMPOSITION:Not Dense. There are scattered areas of fibroglandular density. FINDINGS: No suspicious mass, calcification, or architectural distortion are identified in either kevin ast to suggest malignancy. There has been no suspicious interval change. IMPRESSION: No mammographic evidence of malignancy. Recommend routine screening mammography in one year. BI-RADS Category 1: Negative Reviewed, dictated and finalized at location .
--- OUTSIDE RECORDS SUMMARY | 2024-10-04 10:22 | XMS_ITS | Clinical Summary ---
Author Organization [facility] Address [address] [place] [address] Care Team Providers Care It Security Manager Name Role Phone Som Wilkins MD Unavailable [phone] Iwona Mclaughlin MD Primary Care Provider [phone] Braulio Nova MD Unavailable Luis Manuel Deleon MD Unavailable [phone] Allergies Active Allergy Reactions Criticality Noted Date Comments Shellfish Derived Edema Medium 01/05/2022 Medications naproxen (ALEVE) 220 mg tablet Take according to wnbo-xau-[id number] r package directions 0 0 8 Active [...] Description 09/07/2024 10:00 AM CDT Office Visit [facility] Ophthalmology [address] [place] [address] Health [address]th [place] [address] Bryan Mederos MD Orbital mass (Primary Dx) 09/07/2024 7:37 AM CDT - 09/07/2024 11:59 PM CDT Hospital Encounter [facility] [address] [place] [address] Bryan Mederos MD Orbital mass Discharge Disposition: Discharge to home or self care 08/07/2024 9:15 AM CDT Procedure visit [facility] Dermatology [address] [place] [address] Health [address] [place] [address] Christopher Brizuela MD Basal cell carcinoma (BCC) of left forehead (Primary Dx) 07/21/2024 Results Follow-Up [facility] Dermatology [address] [place] [address] Health [address] [place] [address] Gabby Ackerman MD Surgical pathology 07/18/2024 9:30 AM CDT Office Visit [facility] Dermatology [address] [place] [address] Outpatient Health [address] [place] [address] Gabby Ackerman MD History of nonmelanoma skin cancer (Primary Dx); Actinic keratosis; Seborrheic keratosis; Lentigines; Multiple benign nevi; Malignant spindle cell neoplasm (HCC); Multiple excoriations; Neoplasm of unspecified behavior of bone, soft tissue, and skin 07/18/2024 Orders Only [facility] [address] [place] [address] Gabby Ackerman MD Neoplasm of unspecified behavior of bone, soft tissue, and skin from Last 3 Months Immunizations Immunization Administration Dates Next Due Influenza, Quadrivalent, Spl it, Preservative Free, Intramuscular 12/26/2019,01/03/2019,01/26/2018,01/12,01/16/2016 Influenza, Split 02/15/2012,01/03/2010 Influenza, Trivalent, IM (MDV) 5,01/08/2011,12/20/2008,02/15 Tdap 10/30/2019 Surgical History Surgery Date Site/Laterality Comments TOTAL ABDOMINAL HYSTERECTOMY 04/05/2018 - 04/04/2019 [facility] 04/05/2019 - 04/04/2020 [facility] 04/05/2017 - 04/04/2018 HEAD & NECK [...] on file Legal 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 Gender Identity Female 09/04/2019 7:53 PM CDT Sexual Orientation Straight 09/04/2019 7 :53 PM CDT Obstetrics History Last Filed Vital [...] Screening 05/03/2019 05/03/2018, 04/14/19 18 Influenza Vaccine (#1) 2024 3, 01/05/2022, 12/26/2019, Additional history exists DTaP/Tdap/Td Vaccine [...] SERUM HEPATITIS PANEL Routine 04/04/2014 9:21 AM CENTRAL OFFICE OPERATOR SUPERVISOR from Last 3 Months or Most Recently [...] shave biopsy) 07/18/2024 07/18/2024 12:28 PM CDT [facility] - 07/21/2024 1:41 PM CDT EPIC results best viewed via link to PDF [facility] [address] [place] [address], [address], [place] [address] [email or web address] Note to Patients: This report may contain [...] 07/21/2024 Submitting Physician Information: Gabby Ackerman M.D. [address] [place] [address], [address] [place] [address], DERMATOPATHOLOGY REPORT RESULTS DIAGNOSIS: SKIN, LEFT FOREHEAD, [...] different than those at time of procedure. [facility] ICD-9 A; ZSD.176 Clerical Data A; 65147 The characteristics of special, immunohistochemical, and immunofluorescence stains and in-situ hybridization tests performed by the [facility] were deemed acceptable in ongoing quality lab technician measures and in compliance with regulations drawn from the Clinical Laboratory Improvement Act ml0341 (CLIA '88). Control reactions for all stains performed were deemed adequate and appropriate by a pathologist prior to evaluation of patient tissue. Some diagnoses were rendered with the assistance of laboratory-developed tests utilizing analyte-specific reagents; the performance characteristic of these tests were determined by [facility] and are not cleared or approved by the [place] Food an Drug administration. Laboratory developed test may only be performed in a facility that is certified by the [facility] as a high-complexity laboratory under CLIA '88. These tests are used for clinical purposes and are not investigational. us Gabby Ackerman MD LAB PATHOLOGY ORDERABLES Final Result DERMATOPATHOLOGY CENTER [facility] [place] [address] * Serum Hepatitis panel (04/04/2014 9:21 AM CENTRAL OFFICE OPERATOR SUPERVISOR) HBV surface ag Negative NEG HISTO RICAL RESULTS HCV ab Negative NEG HISTORICAL RESULTS Comment: Interpretive Data If confirmation is required, call Laboratory Customer Service to request sample to be sent to [facility] for Hepatitis C Virus (HCV) RNA Detection and Quantitation by Real-Time Reverse Bobbin Winder-PCR (RT-PCR). Current interpretive data was last revised [...] revised on 2007. Serum 04/04/2014 9:21 AM CENTRAL OFFICE OPERATOR SUPERVISOR us Leydi Shepherd MD LAB BLOOD ORDERABLES Final R esult HISTORICAL RESULTS from Last 3 Months or Most Recently Relevant to Health Maintenance Insurance [place] CHOICE PRF [place] [id number] PLUS UHC CHOICE PLUS Care Teams It Security Manager Relationship Specialty Start Date End Date Iwona Mclaughlin MD [address] [place] [address] PCP - General Family Medicine 02/02/23 Som Wilkins MD [address] [place] [address] Dermatology 01/18/23 Braulio Nova MD [address] [place] [address] Surgical Oncologist Otolaryngology 05/29/24 Luis Manuel Deleon MD [address] [address] Referring Physician Obstetrics and Gynecology 05/29/24
--- OUTSIDE RECORDS SUMMARY | 2024-10-04 10:22 | XMS_ITS | Continuity of Care Document ---
Author Organization [facility] Address [address] [place] [address] Phone Care Team Providers Care Diversity Specialist Name Role Phone Unavailable Unavailable Unavailable Allergies, Adverse Reactions, Alerts Substance Reaction Status Criticality shellfish derived Active No Informa tion Procedures Procedure Date OFFICE OUTPT EST 10 MIN OFFICE O/P EST 5 MIN OFFICE O/P EST 5 MIN SKIN TEST; TUBERCULOSIS, INTRADERMAL Jan OFFICE OUTPT EST 10 MIN Advance Directives Directive Yes / No Effective Date File Name No Information Encounters Encounter Description Practice Location Reason(s) For Visit Diagnoses Date Provider Providers [facility] [address], [place], [place], [id number], [place] tel:[phone] Historic Immunization Location No Information 9 No Information OFFICE OUTPT EST 10 MIN [facility] , [address], [place], [place], [address], [place] tel:[phone] [facility] ROUTINE MEDICAL EXAM 7 No Information OFFICE O/P EST 5 MIN [facility] , [address], [place], [place], [id number], [place] tel:[phone] [facility] 7 No Information OFFICE O/P EST 5 MIN [facility] , [address], [place], [place], [address], [place] tel:[phone] [facility] SCREENING-PU LMONARY TB 200 7 No Information OFFICE OUTPT EST 10 MIN [facility] , [address], [place], [place], [id number], [place] tel:[phone] Tiffanie Bai ROUTINE MEDICAL EXAM 1200 6 No Information Family History Family Member Type Diagnosis Age At Onset No Information Immunizations Vaccine Date Status Comments INFLUENZA VIRUS VACCINE SPLI T VIRUS 6-35 [place] IM administered Source: New Immuniza tion Record Payers Payer name Insurance type Covered democrat ID Authoriza tion(s) No Information Social History Type Description Quantity Date Captured Comments Sex Female Smoking Status No Information Chief Complaint And Reason For Visit No Information Reason For Referral Reason For Referral No Information History Of Present Illness Encounter Date Complaint History Of Prese nt Illness No Information Functional Status Date Functional Assessmen t No Information Instructions Date Instruction Additional Infor mation No Information Assessments Type Assessment Date No Information Patient Care Teams Name Effective Dates (start - stop) Status Members No Information
--- OUTSIDE RECORDS SUMMARY | 2024-10-04 10:22 | XMS_ITS | Encounter Summary ---
Author Organization [facility] Health Address [address] [place] [address] Care Team Providers Care Change Release Manager Name Role Phone Iwona Mclaughlin MD Primary Care Provider [phone] Encounter Details Date Type Department Care Team (Late st Contact Info) Description 12/15/2021 Telephone [facility] [address] [place] [address] Iwona Mclaughlin MD [address] [place] [address] Social History Tobacco Use Types Packs/Day Years Used Date Smoking Tobacco: Never Assessed Comments Unknown Sex and Gender Information Value Date Recorded Sex Assigned at Not on file 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
--- OUTSIDE RECORDS SUMMARY | 2024-10-04 10:22 | XMS_ITS | Clinical Summary ---
Author Organization [facility] Address [address] [place] [address] Care Team Providers Care Nail Specialist Name Role Phone Iwona Mclaughlin MD Primary Care Provider [phone] Source Comments [facility],non-owned Affiliates and Associated Physician Practices is amultiple site organization consisting of ambulatory clinics and hospital sitesin [place], [place], [place] and [place]. This disclosure is being madepursuant to the Care Everywhere program and may not contain all information available regarding this patient. 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 07/28/2024 Orders Only [facility] - Rheumatology [address] [place] [phone] Inder Blanchard MD Rheumatoid arthritis involving multiple sites with positive rheumatoid factor (HCC); Therapeutic drug monitoring; Transaminitis; MCC current use of immunosuppressive drug 07/17/2024 9:30 AM CDT Office Visit [facility] - Ophthalmology [address] [place] [phone] Leobardo Caal MD Long-term use of hydroxychloroquine (Primary Dx); Orbital mass 07/17/2024 9:10 AM CDT Clinical Support [facility] - Ophthalmology [address] [place] [phone] Leobardo Caal MD Long-term use of hydroxychloroquine (Primary Dx) 07/17/2024 9:05 AM CDT Clinical Support [facility] - Ophthalmology [address] [place] [phone] Leobardo Caal MD Long-term use of hydroxychloroquine [...] on file Legal Sex 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 Gender Identity Not on file Sexual Orientation Not on file Last Filed Vital Signs Vital Sign Reading Time Taken Comments Blood Pressure 107/71 06/05/2024 8:36 AM GROOVER AND STRIPER OPERATOR Pulse 74 06/05/2024 8:36 AM GROOVER AND STRIPER OPERATOR Temperature 36.7 C (98 F) 06/05/2024 8:36 AM GROOVER AND STRIPER OPERATOR Respiratory Rate - - Oxygen Saturation 97% 06/05/2024 8:36 AM GROOVER AND STRIPER OPERATOR Inhaled Oxygen Concentration - - Weight 61.7 kg (136 lb) 06/05/2024 8:36 AM GROOVER AND STRIPER OPERATOR Height 162.6 cm (5' 4) 06/05/2024 8:36 AM GROOVER AND STRIPER OPERATOR Body Mass Index 23.34 06/05/2024 8:36 AM GROOVER AND STRIPER OPERATOR Plan of Treatment Upcoming Encounters Date Type Department Care Team (Late st Contact Info) Description 01/16/2025 10:45 AM CDT Office Visit [facility] - Ophthalmology [facility] [facility], [place] [address] Leobardo Caal MD [address] [place] [address] [place] [address] Health Maintenance Due Date Last [...] Procedure Name Priority Date/Time Associated Diagnosis Comments COMPREHENSIVE METABOLIC PANEL Routine 09/29/2024 8:18 AM CDT Rheumatoid arthritis involving multiple sites with positive rheumatoid factor (HCC) Therapeutic drug monitoring Transaminitis MCC current use of immunosuppressive drug CBC W AUTO DIFFERENTIAL Routine 09/29/2024 8:18 AM CDT Rheumatoid arthritis involving multiple sites with positive rheumatoid factor (HCC) Therapeutic drug monitoring Transaminitis 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 RETINAL ANALYSIS OCT Routine 07/17/2024 9:01 AM CDT Long-term use of hydroxychloroquine CISNEROS AUTO VISUAL FIELD EXTENDED Routine 07/17/2024 9:01 AM CDT Long-term use of hydroxychloroquine HEPATITIS C AB W/RFLX TO HCV RNA QN PCR 01/16/2022 1:01 PM CDT from Last 3 Months or Most Recently Relevant to Health Maintenance Results * (ABNORMAL) CBC WITH DIFFERENTIAL (09/29/2024 8:18 AM CDT) White Blood Cell Count 6.0 3.8 - 10.8 Thousand/ uL [facility] RBC 4.32 3.80 - 5.10 Million/u L [facility] Hemoglobin 14.2 11.7 - 15.5 g/dL [facility] Hematocrit 43.3 35.0 - 45.0 % [facility] MCV 100.2(H) 80.0 - 100.0 fL [facility] MCH 32.9 27.0 - 33.0 pg [facility] MCHC 32.8 32.0 - 36.0 g/dL [facility] Comment: For adults, a slight decrease in the calculated MCHC value (in the range of 30 to 32 g/dL) is most likely not clinically significant; however, it should be interpreted with caution in correlation with other red cell parameters and the patient's clinical condition. RDW 12.8 11.0 - 15.0 % [facility] Platelet Count 363 140 - 400 Thousand/ uL [facility] MPV 9.1 7.5 - 12.5 fL [facility] Neutrophil Absolute 2226 1500 - 7800 cells/uL [facility] Lymphocytes Absolute 2802 850 - 3900 cells/uL [facility] Absolute Monocytes 744 200 - 950 cells/uL [facility] Eosinophils Absolute 168 15 - 500 cells/uL [facility] Basophils Absolute 60 0 - 200 cells/uL [facility] Granulocytes % 37.1 % [facility] Lymphocytes % 46.7 % [facility] Monocytes % 12.4 % [facility] Eosinophils % 2.8 % [facility] Basophils % 1.0 % [facility] Comment: Test Performed at: [place] [address] FLAQUITO SIM MD Blood BLOOD SPECIMEN / Unknown 09/29/2024 8:18 AM CDT 09/29/2024 8:19 AM CDT Inder Blanchard MD LAB - HEMATOLOGY ORDERABLES Irina amada Result [facility] [address] [place] [address] * COMPREHENSIVE METABOLIC PANEL (09/29/2024 8:18 AM CDT) Pathologist [facility] Glucose 92 65 - 99 mg/dL [facility] Comment: Fasting reference interval BUN 20 7 - 25 mg/dL [facility] Creatinine 0.91 0.50 - 1.03 mg/dL [facility] eGFR by Cystatin C 74 > OR = 60 mL/min/1. 73m2 [facility] BUN/Creatinine Ratio SEE NOTE: 6 - 22 (calc) [facility] Comment: Not Reported: BUN and Creatinine are within reference range. Sodium 142 135 - 146 mmol/L [facility] Potassium 4.0 3.5 - 5.3 mmol/L [facility] Chloride 105 98 - 110 mmol/L [facility] CO2 32 20 - 32 mmol/L [facility] Calcium 9.6 8.6 - 10.4 mg/dL [facility] Protein Total 6.4 6.1 - 8.1 g/dL [facility] Albumin 4.2 3.6 - 5.1 g/dL [facility] Globulin Total 2.2 1.9 - 3.7 g/dL (calc) [facility] Albumin/Globulin Ratio 1.9 1.0 - 2.5 (calc) [facility] Bilirubin Total 0.5 0.2 - 1.2 mg/dL [facility] Alkaline Phosphatase 56 37 - 153 U/L [facility] AST 26 10 - 35 U/L [facility] ALT 21 6 - 29 U/L [facility] Comment: Test Performed at: [place] [address] FLAQUITO SIM MD Blood BLOOD SPECIMEN / Unknown 09/29/2024 8:18 AM CDT 09/29/2024 8:19 AM CDT Inder Blanchard MD LAB - CHEMISTRY ORDERABLES Final Result [facility] [address] [place] [address] * RETINAL ANALYSIS OCT (07/17/2024 9:01 AM [...] a test for HCV RNA (test code 70410) is suggested. For additional information please refer to http://education.ipatter.com/faq/RDM09r9 (This link is being provided for informational/ educational purposes only.) REPORT COMMENT: COULDNT CLARIFY TB TEST, PT WANT TO DECLINE IT ALL TOGETHER FASTING:NO PATIENT REFUSED SOME TESTING; PATIENT ENCOURAGED Test Performed at: [facility] [address] [facility] [place] [address] AHMET CASAS DO,MPH 01/16/2022 1:01 PM CDT 01/16/2022 1:08 PM CDT Inder Blanchard MD LAB - CHEMISTRY ORDERABLES Final Result [facility] [address] [place] [address] from Last 3 Months or Most Recently Relevant to Health Maintenance Insurance COUNT INCLUDES THE [facility] CARE COUNT INCLUDES THE [facility] C[facility] Care Teams Nail Specialist Relationship Specialty Start Date End Date Iwona Mclaughlin MD [address] [id number] PCP - General 09/27/21
--- OUTSIDE RECORDS SUMMARY | 2024-10-04 10:22 | XMS_ITS ---
Author Organization [facility] Address [address] [place] [address] Care Team Providers Care Grease Renderer Name Role Phone Som Wilkins MD Unavailable [phone] Iwona Mclaughlin MD Primary Care Provider [phone] Braulio Ford MD Unavailable Luis Manuel Deleon [...]
--- OUTSIDE RECORDS SUMMARY | 2024-10-04 10:22 | XMS_ITS | Referral Summary ---
Author Organization [facility] Address [address] [place] [address] Care Team Providers Care Game Producer Name Role Phone Som Wilkins MD Unavailable [phone] Iwona Mclaughlin MD Primary Care Provider [phone] Braulio Nova MD Unavailable [phone] Luis Manuel Deleon MD Unavailable [phone] Encounters Date Type Department Care Team Description 09/07/2024 10:00 AM CDT Office Visit [facility] Ophthalmology [facility] 6th [place] [phone] Bryan Mederos MD Orbital mass (Primary Dx) 09/07/2024 7:37 AM CDT - 09/07/2024 11:59 PM CDT Hospital Encounter [facility] [address] [place] [phone] Bryan Mederos MD Orbital mass Discharge Disposition: Discharge to home or self care 08/07/2024 9:15 AM CDT Procedure visit [facility] Dermatology [address] [place] [address] [address] [place] [address] Christopher Brizuela MD Basal cell carcinoma (BCC) of left forehead (Primary Dx) 07/21/2024 Results Follow-Up [facility] Dermat[facility] [address] [facility] [address] [place] [address] Gabby Ackerman MD Surgical pathology 07/18/2024 Orders Only [facility] [address] [place] [address] Gabby Ackerman MD Neoplasm of unspecified behavior of bone, soft tissue, and skin 07/18/2024 9:30 AM CDT Office Visit [facility] Dermatology [facility] [address] [place] [address] Gabby Ackerman MD History of nonmelanoma skin cancer (Primary Dx); Actinic keratosis; Seborrheic keratosis; Lentigines; Multiple benign nevi; Malignant spindle cell neoplasm (HCC); Multiple excoriations; Neoplasm of unspecified behavior of bone, soft tissue, and skin from Last 3 Months Allergies Active Allergy Reactions Criticality Noted Date Comments Shellfish Derived Edema Medium 01/05/2022 Medications naproxen (ALEVE) 220 mg tablet Take according to yiwe-ult-acsuqs r package directions 0 0 8 Active [...] on file Legal Sex Female 8:21 AM CHILDCARE CENTER 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 Gender Identity Female 09/04/2019 7:53 PM CDT [...] SERUM HEPATITIS PANEL Routine 04/04/2014 9:21 AM CHILDCARE CENTER 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 from Last 3 Months or Most Recently [...] shave biopsy) 07/18/2024 07/18/2024 12:28 PM CDT [facility] - 07/21/2024 1:41 PM CDT EPIC results best viewed via link to PDF [facility] [address] [place] [address], [address], [place] [address] [email or web address] Note to Patients: This report may [...] 07/21/2024 Submitting Physician Information: Gabby Ackerman M.D. [address] [place] [address], [place] [address], DERMATOPATHOLOGY REPORT RESULTS DIAGNOSIS: SKIN, LEFT FOREHEAD, [...] different than those at time of procedure. [facility] ICD-9 A; ZSD.176 Clerical Data A; 69574 The characteristics of special, immunohistochemical, and immunofluorescence stains and in-situ hybridization tests performed by the [facility] were deemed acceptable in ongoing quality control lab technician measures and in compliance with regulations drawn from the Clinical Laboratory Improvement Act bv4540 (CLIA '88). Control reactions for all stains performed were deemed adequate and appropriate by a pathologist prior to evaluation of patient tissue. Some diagnoses were rendered with the assistance of laboratory-developed tests utilizing analyte-specific reagents; the performance characteristic of these tests were determined by [facility] and are not cleared or approved by the [place] Food an Drug administration. Laboratory developed test may only be performed in a facility that is certified by the [facility] as a high-complexity laboratory under CLIA '88. These tests are used for clinical purposes and are not investigational. Gabby Ackerman MD LAB PATHOLOGY ORDERABLES Final Result [facility] [address] [place] [address] * Serum Hepatitis panel (04/04/2014 9:21 AM CHILDCARE CENTER 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) HBV surface ag Negative NEG HISTO RICAL RESULTS HCV ab Negative NEG HISTORICAL RESULTS Comment: Interpretive Data If confirmation is required, call Laboratory Customer Service to request sample to be sent to [facility] for Hepatitis C Virus (HCV) RNA Detection and Quantitation by Real-Time Reverse Rehab Therapist-PCR (RT-PCR). Current interpretive data was last revised [...] revised on 2007. Serum 04/04/2014 9:21 AM CHILDCARE CENTER 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 us Leydi Shepherd MD LAB BLOOD ORDERABLES Final R esult HISTORICAL RESULTS from Last 3 Months or Most Recently Relevant to Health Maintenance Insurance [place] CHOICE PL[place] [facility] CHOICE PLUS Care Teams Game Producer Relationship Specialty Start Date End Date Iwona Mclaughlin MD [address] [place] [address] PCP - General Family Medicine 02/02/23 Som Wilkins MD [address] [place] [address] Dermatology 01/18/23 Braulio Nova MD [address] [facility] [address] [place] [address] Surgical Oncologist Otolaryngology 05/29/24 Luis Manuel Deleon MD [address] [address] Referring Physician Obstetrics and Gynecology 05/29/24
== END 2024-10-04 09:58 | disposition home or self-care (01) ==
LOC: ANHIMG 09:59
PROVIDERS: PCP Family Medicine; Visit Provider Obstetrics & Gynecology
DX: Z12.31 Encounter for screening mammogram for malignant neoplasm of breast (principal)
CPT/HCPCS: 77063; 77067